=== PATIENT | male | born 1950 | race Caucasian/White ===

== ENCOUNTER 2020-04-16 11:08 | Observation (INO) | payer MEDICARE ==
[~2020-04-16] VITALS: Ht 185.4 cm; Wt 93.2 kg
[2020-04-16] MEDS: SODIUM CHLORIDE 0.9% 1,000 ML IV SCH ×2 (11:30→18:49)
[2020-04-16] MEDS ORDERED: OMEP-110 PO (11:49)
[2020-04-16] MEDS ORDERED: NIAC500C3 PO (11:49)
[2020-04-16] MEDS ORDERED: SILD100T PO (11:49)
[2020-04-16] MEDS ORDERED: Potassium PO (11:49)
[2020-04-16] MEDS ORDERED: DOCU100C33 PO (11:49)
[2020-04-16 11:50] VITALS: BP 150/92
[2020-04-16 12:12] LABS: BASOPHILS % (AUTO) 0 % (0-1); EOSINOPHILS % (AUTO) 2 % (1-7); LYMPHOCYTES % (AUTO) 26 % (22-44); MD NO; MEAN CORPUSCULAR HGB CONC 34.6 g/dL (33.2-36.2); MEAN PLATELET VOLUME 8.3 fL (7.4-10.4); MONOCYTES % (AUTO) 13 % (2-9); NEUTROPHILS % (AUTO) 58 % (42-75); PLATELET COUNT 151 x10^3/uL (130-400); RED BLOOD COUNT 4.89 x10^6/uL (4.38-5.82)
[2020-04-16 12:23] LABS: ANION GAP 6 mmol/L (5-15); CALCIUM 9.5 mg/dL (8.5-10.1); CHLORIDE 108 mmol/L (98-107); CREATININE 1.11 mg/dL (0.7-1.3)
[2020-04-16] MEDS ORDERED: LIDOCAINE 2%, 20ML ONE (13:14)
[2020-04-16] MEDS ORDERED: CEFAZOLIN PMX 1GM/50ML 50 ML ONE (13:14)
[2020-04-16] MEDS ORDERED: MIDAZOLAM 1 MG/ML, 5ML ONE (13:14)
[2020-04-16] MEDS ORDERED: CEFAZOLIN 1,000 MG ONE (13:14)
[2020-04-16] MEDS ORDERED: FENTANYL PF 100 MCG/2ML ONE (13:14)
[2020-04-16] MEDS ORDERED: HOLD MEDICATION MC PRN (16:00)
[2020-04-16] MEDS ORDERED: ACETAMINOPHEN 325 MG TABLET PO PRN (16:00)
[2020-04-16] MEDS ORDERED: HYDROcodone/APAP 5/325 TABLET PO PRN (16:00)
[2020-04-16] MEDS ORDERED: [UNRECOGNIZED DRUG - REMARK] MC PRN (16:00)
[2020-04-16] MEDS ORDERED: DOCUSATE 100 MG CAPSULE PO PRN (16:00)
[2020-04-16 19:32] VITALS: BP 123/84
[2020-04-16] MEDS ORDERED: ZOLPIDEM 5MG TABLET PO PRN (21:00)
[2020-04-16] MEDS: CEFAZOLIN PMX 1GM/50ML 50 ML IVPB SCH (21:54)
[2020-04-16] MEDS: SODIUM CHLORIDE FLUSH 10ML SYR IVF SCH (21:54)
[2020-04-17 01:52] VITALS: BP 132/80
[2020-04-17] MEDS: SODIUM CHLORIDE 0.9% 1,000 ML IV SCH ×2 (03:30→09:05)
[2020-04-17] MEDS: CEFAZOLIN PMX 1GM/50ML 50 ML IVPB SCH (06:01)
[2020-04-17 07:10] VITALS: BP 151/88
[2020-04-17] MEDS: SODIUM CHLORIDE FLUSH 10ML SYR IVF SCH (09:00)
[2020-04-17] MEDS ORDERED: OMEPRAZOLE 20 MG CAPSULE.DR PO SCH (09:00)
== END 2020-04-17 12:28 | disposition home or self-care (01) ==
LOC: CACL 11:08 → 5SO 14:50 → ORIP 15:32 → CACL 16:28 → 5SO 16:57 → DCLOUNGE 04-17 12:21
PROVIDERS: ADMIT Internal Medicine Cardiovascular Disease; ATTEND Internal Medicine Clinical Cardiac Electrophysiology
DX: I44.2 Atrioventricular block, complete (principal); M10.9 Gout, unspecified; K21.9 Gastro-esophageal reflux disease without esophagitis; E78.5 Hyperlipidemia, unspecified; F10.10 Alcohol abuse, uncomplicated; Z79.899 Other long term (current) drug therapy; Z85.048 Personal history of other malignant neoplasm of rectum, rectosigmoid junction, and anus; Z85.46 Personal history of malignant neoplasm of prostate
CPT/HCPCS: 33208; 36415; 71045; 71046; 80048; 85025; 96365; 96366; 99156; 99157; C1779; C1785; C1892; G0378; J0690; J2250; J3010; J3490

== ENCOUNTER 2020-10-22 09:35 | Observation (INO) | payer MEDICARE ==
[~2020-10-22] VITALS: Ht 185.4 cm; Wt 93.2 kg
[~2020-10-22 09:35] MED LIST: DOCU100C33 PO; NIAC500C3 PO; OMEP-110 PO; Potassium PO; SILD100T PO
[2020-10-22] MEDS ORDERED: APIX5TAB PO (10:42)
[2020-10-22] MEDS ORDERED: FISH1CAP PO (10:42)
[2020-10-22] MEDS ORDERED: POTA20TA6 PO (10:42)
[2020-10-22 10:47] VITALS: BP 139/88
[2020-10-22] MEDS ORDERED: SODIUM CHLORIDE 0.9% 1,000 ML IV SCH (11:00)
[2020-10-22 11:22] LABS: BASOPHILS % (AUTO) 0 % (0-1); EOSINOPHILS % (AUTO) 2 % (1-7); LYMPHOCYTES % (AUTO) 23 % (22-44); MEAN CORPUSCULAR HEMOGLOBIN 31.8 pg (27.5-34.5); MEAN CORPUSCULAR HGB CONC 34.7 g/dL (33.2-36.2); MEAN PLATELET VOLUME 8.2 fL (7.4-10.4); MONOCYTES % (AUTO) 12 % (2-9); NEUTROPHILS % (AUTO) 62 % (42-75); PLATELET COUNT 161 x10^3/uL (130-400); RED BLOOD COUNT 4.99 x10^6/uL (4.38-5.82); RED CELL DISTRIBUTION WIDTH 14.5 % (9.4-14.8)
[2020-10-22 11:29] LABS: ANION GAP 8 mmol/L (5-15); CALCIUM 9.1 mg/dL (8.5-10.1); CHLORIDE 107 mmol/L (98-107)
[2020-10-22 11:32] LABS: ALANINE AMINOTRANSFERASE 29 U/L (12-78); ALKALINE PHOSPHATASE 56 U/L (45-117); BILIRUBIN,TOTAL 1.2 mg/dL (0.2-1.0); CREATININE 0.99 mg/dL (0.7-1.3); TOTAL PROTEIN 7.1 g/dL (6.4-8.2)
[2020-10-22] MEDS ORDERED: FENTANYL PF 250 MCG/5ML ONE (13:45)
[2020-10-22] MEDS ORDERED: MIDAZOLAM 1 MG/ML, 2ML ONE (13:45)
[2020-10-22] MEDS ORDERED: PROPOFOL 10 MG/ML, 20ML ONE (14:34)
[2020-10-22] MEDS ORDERED: ROCURONIUM 10MG/ML,5ML ONE ×2 (14:35→14:39)
[2020-10-22] MEDS ORDERED: ONDANSETRON 2MG/ML, 2ML ONE (14:39)
[2020-10-22] MEDS ORDERED: SUCCINYLCHOLINE 20 MG/ML, 10ML ONE (14:39)
[2020-10-22] MEDS ORDERED: DEXAMETHASONE 4 MG/ML, 1ML ONE (14:39)
[2020-10-22] MEDS ORDERED: morphine SULFATE 10 MG/ML, 1ML IVPush PRN (15:00)
[2020-10-22] MEDS ORDERED: OXYcodone 5 MG/5 ML ORAL.SOL UDC PO PRN (15:00)
[2020-10-22] MEDS ORDERED: FENTANYL PF 100 MCG/2ML IV PRN (15:00)
[2020-10-22] MEDS ORDERED: EPHEDRINE 50 MG/ML, 1ML IM PRN (15:00)
[2020-10-22] MEDS ORDERED: DIPHENHYDRAMINE 50 MG/ML, 1ML IVPush PRN (15:00)
[2020-10-22] MEDS ORDERED: EPHEDRINE 50 MG/ML, 1ML IVPush PRN (15:00)
[2020-10-22] MEDS ORDERED: LABETALOL 5MG/ML, 20ML IV PRN (15:00)
[2020-10-22] MEDS ORDERED: ACETAMINOPHEN 325 MG TABLET PO PRN (15:00)
[2020-10-22] MEDS ORDERED: PROMETHAZINE 25 MG/ML, 1ML IVPush PRN (15:00)
[2020-10-22] MEDS ORDERED: MEPERIDINE/PF 25MG/0.5ML IVPush PRN (15:00)
[2020-10-22] MEDS ORDERED: DIAZEPAM 5 MG/ML, 2ML IVPush PRN (15:00)
[2020-10-22] MEDS ORDERED: ONDANSETRON 2MG/ML, 2ML IVPush PRN (15:00)
[2020-10-22] MEDS ORDERED: DOCUSATE 100 MG CAPSULE PO PRN (15:30)
[2020-10-22] MEDS ORDERED: TEMPLATE NON-FORMULARY MED. (Sildenafil Citrate** (Viagra**) 100 MG) PO PRN (15:30)
[2020-10-22] MEDS ORDERED: APIXABAN 5 MG TABLET ONE (16:28)
[2020-10-22 19:35] VITALS: BP 128/77
[2020-10-22] MEDS ORDERED: NIACIN 500 MG TABLET.ER PO SCH (21:00)
[2020-10-22] MEDS ORDERED: APIXABAN 5 MG TABLET PO SCH (21:00)
[2020-10-23] MEDS ORDERED: OMEPRAZOLE 20 MG CAPSULE.DR PO SCH (07:30)
[2020-10-23] MEDS ORDERED: POTASSIUM CHLORIDE 20 MEQ TAB.ER.PRT PO SCH (09:00)
[2020-10-23] MEDS ORDERED: OMEGA-3/FISH OIL CAPSULE PO SCH (09:00)
== END 2020-10-22 20:11 | disposition home or self-care (01) ==
LOC: CACL 09:35 → ORIP 15:18 → 5SO 18:18
PROVIDERS: ADMIT Internal Medicine Cardiovascular Disease; ATTEND Internal Medicine Cardiovascular Disease
DX: I48.3 Typical atrial flutter (principal); Z20.822 Contact with and (suspected) exposure to COVID-19; I48.91 Unspecified atrial fibrillation; I10 Essential (primary) hypertension; F10.10 Alcohol abuse, uncomplicated; Z79.899 Other long term (current) drug therapy
CPT/HCPCS: 36415; 71046; 80053; 85025; 87635; 93005; 93312; 93321; 93325; 93613; 93621; 93653; C1730; C1732; C1766; C1894; G0378; J0330; J1100; J2250; J2405; J2704; J3010